=== PATIENT | male | born 1945 | race American Indian/Alaskan Native ===

== ENCOUNTER 2016-03-15 17:53 | Emergency (ER) | payer MEDICARE, OTHER ==
[2016-03-15] MEDS ORDERED: ZOFRAN ONE (18:08)
[2016-03-15] MEDS ORDERED: NACL 0.9% 1000 ML 1,000 ML ONE (18:09)
[2016-03-15] MEDS ORDERED: ZOFRAN IV ONE (18:40)
[2016-03-15] MEDS ORDERED: NACL 0.9% 1000 ML IV ONE (18:41)
[2016-03-15 19:43] LABS: Basophils % (Auto) 0.4 % (0.0-1.8); Eosinophils % (Auto) 0.3 % (0.0-4.3); Hematocrit 39.5 % (35.5-45.6); Hemoglobin 13.3 gm/dl (11.8-15.2); Mean Corpuscular HGB Conc 34 % (32-34); Mean Corpuscular Hemoglobin 27 pg (28-32); Mean Corpuscular Volume 80 fl (84-94); Platelet Count 279 K/mm3 (140-440); Red Blood Count 4.92 M/mm3 (3.65-5.03); Red Cell Distribution Width 13.6 % (13.2-15.2); White Blood Count 16.4 K/mm3 (4.5-11.0)
[2016-03-15 20:02] LABS: BUN/Creatinine Ratio 11.11; Blood Urea Nitrogen 10 mg/dL (9-20); Calcium 8.8 mg/dL (8.4-10.2); Carbon Dioxide 24 mmol/L (22-30); Chloride 102.6 mmol/L (98-107); Glucose 162 mg/dL (75-100); Potassium 3.6 mmol/L (3.6-5.0); Sodium 143 mmol/L (137-145)
[2016-03-15 20:03] LABS: Anion Gap 20 mmol/L
[2016-03-15] MEDS ORDERED: NACL 0.9% 1000 ML 1,000 ML IV ONE (20:20)
--- NOTE | 2016-03-15 20:26 | Emergency Department Report ---
ED General Adult HPI - General Chief complaint: Nausea/Vomiting/Diarrhea Stated complaint: N/V/D Time Seen by Provider: 03/15/16 19:17 Source: EMS Mode of arrival: Stretcher Limitations: No Limitations - History of Present Illness Initial comments: Patient is a 70-year-old male with history of hypertension, hyperlipidemia, diabetes presented today because of abdominal pain and nausea vomiting. Patient states that he was sitting and watching [employer] at home ate a ham sandwich and all of a sudden had a mild periumbilical pain that was followed up soon by multiple bouts of nonbloody nonbilious emesis. Patient called EMS and had vomited once since he's been here. He has not had any stool during this time. No fevers, chills or any other significant symptoms. Has not had these symptoms in the past. Currently is asymptomatic. - Related Data Home Medications Medication Instructions Recorded Confirmed Last Taken Atenolol [Tenormin] 100 mg PO DAILY 03/15/16 03/15/16 Unknown AtorvaSTATin [Lipitor] 10 mg PO DAILY 03/15/16 03/15/16 Unknown Doxazosin [Cardura] 2 mg PO QHS 03/15/16 03/15/16 Unknown Linagliptin [Tradjenta] 5 mg PO QDAY 03/15/16 03/15/16 Unknown Lisinopril [Zestril TAB] 40 mg PO DAILY 03/15/16 03/15/16 Unknown NIFEdipine [Nifedipine ER] 60 mg PO DAILY 03/15/16 03/15/16 Unknown metFORMIN [Glucophage] 100 mg PO BID 03/15/16 03/15/16 Unknown Allergies Allergy/AdvReac Type Severity Reaction Status Date / Time No Known Allergies Allergy Unverified 03/15/16 18:30 ED Review of Systems ROS: Stated complaint: N/V/D Other details as noted in HPI Comment: All other systems reviewed and negative Constitutional: denies: chills, fever ENT: denies: throat pain Respiratory: denies: cough, shortness of breath Cardiovascular: denies: chest pain Gastrointestinal: abdominal pain, nausea, vomiting. denies: diarrhea Genitourinary: denies: dysuria Skin: denies: rash ED Past Medical Hx - Past Medical History Hx Hypertension: Yes Hx Diabetes: Yes Hx Renal Disease: Yes ([place]) Additional medical history: cholesterol - Surgical History Past Surgical History?: No - Social History Smoking Status: Former Smoker Substance Use Type: None - Medications Home Medications: Home Medications Medication Instructions Recorded Confirmed Last Taken Type Atenolol [Tenormin] 100 mg PO DAILY 03/15/16 03/15/16 Unknown History AtorvaSTATin [Lipitor] 10 mg PO DAILY 03/15/16 03/15/16 Unknown History Doxazosin [Cardura] 2 mg PO QHS 03/15/16 03/15/16 Unknown History Linagliptin [Tradjenta] 5 mg PO QDAY 03/15/16 03/15/16 Unknown History Lisinopril [Zestril TAB] 40 mg PO DAILY 03/15/16 03/15/16 Unknown History NIFEdipine [Nifedipine ER] 60 mg PO DAILY 03/15/16 03/15/16 Unknown History metFORMIN [Glucophage] 100 mg PO BID 03/15/16 03/15/16 Unknown History ED Physical Exam - General Limitations: No Limitations - Head Head exam: Present: atraumatic - Eye Eye exam: Present: normal appearance - ENT ENT exam: Present: mucous membranes dry - Neck Neck exam: Present: normal inspection - Respiratory Respiratory exam: Present: normal lung sounds bilaterally. Absent: respiratory distress - Cardiovascular Cardiovascular Exam: Present: normal rhythm, tachycardia - GI/Abdominal GI/Abdominal exam: Present: soft. Absent: distended, tenderness, guarding, rebound, rigid - Rectal Rectal exam: Present: deferred - Neurological Exam Neurological exam: Present: alert, oriented X3 - Psychiatric Psychiatric exam: Present: normal affect - Skin Skin exam: Absent: rash ED Course Vital Signs 03/15/16 03/15/16 03/15/16 18:10 18:22 19:00 Temperature 98.4 F Pulse Rate 118 H 105 H Respiratory 18 32 H Rate Blood Pressure 208/93 177/83 O2 Sat by Pulse 99 100 97 Oximetry 03/15/16 03/15/16 03/15/16 20:00 21:00 22:00 Temperature Pulse Rate 106 H 95 H Respiratory 22 30 H Rate Blood Pressure 190/85 165/81 163/79 O2 Sat by Pulse 97 95 95 Oximetry - Reevaluation(s) Reevaluation #1: 03/15/16 21:45 Patient still asymptomatic currently. Heart rate is now 90-95. Troponin negative. Reevaluation #2: 03/15/16 22:29 Patient feeling significantly better. Has been asymptomatic for the last couple hours. Appears to be likely due to gastritis from food. Patient given his home blood pressure medication from home. BP has improved since then. Will dc home with pmd fu. 03/15/16 22:35 ED Medical Decision Making - Lab Data Result diagrams: 03/15/16 19:27 03/15/16 19:27 - Medical Decision Making IV, labs, IV fluids and Zofran pre-ordered. Labs show leukocytosis, patient is slightly tachycardic at 110 EKG shows normal sinus rhythm at a heart rate in 90, no ST or T changes, normal QTC at 420 Critical care attestation.: If time is entered above; I have spent that time in minutes in the direct care of this critically ill patient, excluding procedure time. ED Disposition Clinical Impression: Vomiting Qualifiers: Vomiting type: unspecified Vomiting Intractability: non-intractable Nausea presence: with nausea Qualified Code(s): R11.2 - Nausea with vomiting, unspecified Disposition: DISCHARGED TO HOME OR SELFCARE Is pt being admited?: No Does the pt Need Aspirin: No Condition: Stable Instructions: Acute Nausea and Vomiting (ED), Gastritis (ED) Additional Instructions: Please follow up with your primary care doctor in the next 3-5 days. Return to emergency room if you have worsening of your symptoms or develop any new symptoms. Referrals: PRIMARY CARE, [Primary Care Provider] - 3-5 Days
[2016-03-15 22:15] VITALS: BP 163/79
== END 2016-03-15 23:19 | disposition home or self-care (01) ==
LOC: ED 17:53
DX: R11.2 Nausea with vomiting, unspecified (principal); I10 Essential (primary) hypertension; E11.9 Type 2 diabetes mellitus without complications; Z87.891 Personal history of nicotine dependence; E78.00 Pure hypercholesterolemia, unspecified
CPT/HCPCS: 36415; 80048; 84484; 85025; 93005; 93010; 96374; 99284; J2405; J7030

== ENCOUNTER 2020-10-05 05:56 | Outpatient (CLI) | payer MEDICARE, OTHER ==
[2020-10-05] MEDS ORDERED: fentaNYL 100 MCG/2 ML INJ IV SCH (07:30)
[2020-10-05] MEDS ORDERED: MIDAZOLAM 5 MG/5 ML INJ MDV IV SCH (07:30)
[2020-10-05 07:36] LABS: Basophils % (Auto) 0.4 % (0.0-1.8); Eosinophils # (Auto) 0.1 K/mm3 (0.0-0.4); Eosinophils % (Auto) 0.7 % (0.0-4.3); Hematocrit 36.8 % (35.5-45.6); Hemoglobin 12.4 gm/dl (11.8-15.2); Lymphocytes # (Auto) 1.7 K/mm3 (1.2-5.4); Lymphocytes % (Auto) 17.3 % (13.4-35.0); Mean Corpuscular HGB Conc 34 % (32-34); Mean Corpuscular Volume 80 fl (84-94); Monocytes # (Auto) 0.8 K/mm3 (0.0-0.8); Platelet Count 254 K/mm3 (140-440); Red Blood Count 4.62 M/mm3 (3.65-5.03)
[2020-10-05 07:46] LABS: INR 1.14 (0.87-1.13)
[2020-10-05 07:47] LABS: Partial Thromboplastin Time 28.2 Sec. (24.2-36.6)
[2020-10-05] MEDS ORDERED: SODIUM CHLORIDE 0.9% 500 ML 500 ML IV SCH (08:00)
--- NOTE | 2020-10-05 10:14 | Short Stay Summary ---
Short Stay Documentation Date of service: 10/05/20 - History Principal diagnosis: Prostate cancer with hypovascular liver lesions H&P: obtained from office - Allergies and Medications Current Medications: Allergies No Known Allergies Allergy (Verified 10/05/20 07:01) Home Medications Medication Instructions Recorded Confirmed Last Taken Type AtorvaSTATin 10 mg PO DAILY 03/15/16 10/05/20 10/04/20 History 10 mg Doxazosin [Cardura] 2 mg PO QHS 03/15/16 10/05/20 10/04/20 History 2 mg NIFEdipine [Nifedipine ER] 60 mg PO DAILY 03/15/16 10/05/20 10/04/20 History 60 mg lisinopriL [Zestril TAB] 40 mg PO DAILY 03/15/16 10/05/20 10/04/20 History 40 mg metFORMIN [Glucophage] 100 mg PO BID 03/15/16 10/05/20 10/04/20 History 100 mg Bicalutamide [Casodex] 50 mg PO DAILY 10/05/20 10/05/20 10/04/20 History 50 mg Linagliptin [Tradjenta] 5 mg PO DAILY 10/05/20 10/05/20 10/04/20 History 5 mg Metoprolol [Lopressor TAB] 25 mg PO DAILY 10/05/20 10/05/20 10/04/20 History 25 mg amLODIPine 5 mg PO DAILY 10/05/20 10/05/20 10/04/20 History 5 mg glipiZIDE [Glucotrol] 10 mg PO BID 10/05/20 10/05/20 10/04/20 History 10 mg Active Medications Fentanyl (Fentanyl 100 Mcg/2 Ml Inj) 100 mcg IV ONCE JANELLE Stop: 10/05/20 17:00 Sodium Chloride (Nacl 0.9% 500 Ml) 500 mls @ 50 mls/hr IV DIRECT JANELLE Midazolam HCl (Midazolam 5 Mg/5 Ml Inj Mdv) 5 mg IV ONCE JANELLE Stop: 10/05/20 15:00 - Brief post op/procedure progress note Date of procedure: 10/05/20 Pre-op diagnosis: Prostate cancer, liver lesions Post-op diagnosis: same Procedure: CT-guided liver biopsy Anesthesia: local Surgeon: JOSEPH RODRIGUEZ Estimated blood loss: minimal Pathology: none Condition: stable - Disposition Condition at discharge: Good Disposition: DC-01 TO HOME OR SELFCARE Short Stay Discharge Plan Activity: advance as tolerated Weight Bearing Status: Weight Bear as Tolerated Diet: regular Wound: keep clean and dry, per your surgeon's advice Follow up with: IBAN MADDEN MD [Primary Care Provider] - 7 Days
--- NOTE | 2020-10-05 10:16 | Operative Report ---
Operative Report Operative Report: Exam: CT-guided liver biopsy Clinical indication: Patient with a history of prostate cancer and the developme nt of multiple hypovascular hepatic masses Date: 10/05/2020 Procedure: Following an explanation of the risks, benefits and alternatives; written informed consent was obtained. The patient was brought to the CT suite and placed in supine position on the gantry. Initial clinical documentation nurse images of his abdomen were performed and an appropriate access site to a right lobe mass was chosen along the lateral aspect of the patient's right upper abdomen. The patient was prepped and draped in the usual sterile fashion. 1% lidocaine was used for anesthesia. Using intermittent CT guidance, a 10 cm 19-gauge trocar needle was advanced to the margin of the mass. With pathology in attendance, a total of 3 core biopsies were obtained. The sample was determined to be adequate for pathologic analysis. The biopsy needle was removed and 2 Gelfoam pledgets injected through the trocar needle as it was removed to the margin of the liver. The needle was then removed and hemostasis at the skin surface was achieved using manual compression. A sterile dressing was applied. The patient tolerated the procedure well. There were no immediate postprocedure complications. Conscious sedation was performed under the guidance of radiologic nursing. Continuous cardiopulmonary monitoring was utilized. Impression: CT-guided liver biopsy with 3 core samples obtained and handed off to the pathologist in attendance. The samples were determined to be adequate for pathologic analysis.
[2020-10-05 13:45] VITALS: BP 168/68
--- NOTE | 2020-10-06 14:31 | Cat Scan Report ---
PLEASE SEE OPERATIVE REPORT ON 10-05-20 @ 10:14. MTDD
--- NOTE | 2020-10-06 14:33 | Cat Scan Report ---
PLEASE SEE OPERATIVE REPORT 8-5-21 @ 10:14 MTDD
== END 2020-10-05 16:04 | disposition home or self-care (01) ==
LOC: CATHLABREC 05:56
PROVIDERS: ATTEND Radiology Diagnostic Radiology
DX: C61 Malignant neoplasm of prostate (principal); I10 Essential (primary) hypertension; E78.00 Pure hypercholesterolemia, unspecified; M19.90 Unspecified osteoarthritis, unspecified site; Z79.899 Other long term (current) drug therapy; Z98.890 Other specified postprocedural states
CPT/HCPCS: 36415; 47000; 77012; 85025; 85610; 85730; 88172; 88173; 88307; J2250; J3010; J7040; 88333; 88341; 88342